=== PATIENT | female | born 1935 | race Caucasian/White ===

== ENCOUNTER → 2017-02-05 15:23 | Outpatient (REF) | payer MEDICARE, MEDICAID, SELFPAY ==
[2017-02-06 15:43] LABS: Color, Urine Yellow (Yellow); Glucose, Dipstick Normal (Normal); Ketone-Dipstick Negative (Negative); Leukocyte Esterase-Dipstick 500 /ul (Negative); Nitrite-Dipstick Negative (Negative); Occult Blood-Urine 50 /ul (Negative); Protein-Dipstick 15 mg/dl (Negative); Urine Bilirubin Dipstick Negative (Negative); Urine Clarity Sl. Cloudy (Clear); Urine Urobilinogen Normal (Normal)
== END ==
LOC: OLS.ACW300 15:23
PROVIDERS: Visit Provider Family Medicine
DX: N39.0 Urinary tract infection, site not specified (principal); B96.20 Unspecified Escherichia coli [E. coli] as the cause of diseases classified elsewhere; E11.9 Type 2 diabetes mellitus without complications; G30.1 Alzheimer's disease with late onset
CPT/HCPCS: 81002; 87077; 87086; 87088; 87186